=== PATIENT | male | born 1995 | race Hispanic/Latino ===

== ENCOUNTER 2017-12-15 04:42 | Emergency (ER) | payer OTHER ==
[2017-12-15] MEDS ORDERED: IBUPROFEN 400 MG TABLET ONE (05:17)
== END 2017-12-15 06:35 | disposition home or self-care (01) ==
LOC: EDH 04:42
DX: S69.82XA Other specified injuries of left wrist, hand and finger(s), initial encounter (principal); M25.532 Pain in left wrist; W22.8XXA Striking against or struck by other objects, initial encounter; Y93.89 Activity, other specified; Y92.89 Other specified places as the place of occurrence of the external cause; Y99.8 Other external cause status
CPT/HCPCS: 29125; 73110

== ENCOUNTER 2018-05-28 12:31 | Inpatient (IN) | payer OTHER ==
[2018-05-28] VITALS (8 sets, daily range): BP systolic 123–135; BP diastolic 55–80
[~2018-05-28] VITALS: Ht 180.3 cm; Wt 65.6 kg
[2018-05-28 13:09] LABS: BASOPHILS % (AUTO) 3.4 % (0.0-5.0); EOSINOPHILS % (AUTO) 0.1 % (0.0-8.0); HEMATOCRIT 42.6 % (42-54); MEAN CORPUSCULAR HEMOGLOBIN 28.5 pg (27.0-33.0); MEAN CORPUSCULAR HGB CONC 34.3 g/dL (32.0-36.0); MONOCYTES % (AUTO) 10.1 % (3.0-13.0); NEUTROPHILS % (AUTO) 74.4 % (40.0-77.0); PLATELET COUNT (AUTO) 122 K/uL (130-400); RED BLOOD CELL COUNT(AUTO) 5.13 MIL/uL (4.50-6.20); WHITE BLOOD COUNT (AUTO) 6.2 K/uL (4.8-10.8)
[2018-05-28 13:15] LABS: HEMOGLOBIN A1C 11.6 % (4.0-6.0)
[2018-05-28 13:21] LABS: ABG BASE EXCESS -15.8 mmol/L (-2.0-3.0); ABG HCO3 8.5 mmol/L (21.0-28.0); ABG OXYGEN SATURATION 97.5 % (95.0-99.0); ABG PCO2 19 mmHg (35-48)
[2018-05-28 13:36] LABS: ALBUMIN 3.4 g/dL (3.5-5.0); BILIRUBIN,TOTAL 0.9 mg/dL (0.2-1.0); TOTAL PROTEIN, SERUM 7.4 g/dL (6.0-8.3)
[2018-05-28] MEDS ORDERED: INSULIN HUMULIN R 100 UNIT/ML 3ML ONE ×2 (13:45→13:53)
[2018-05-28] MEDS ORDERED: SODIUM CHLORIDE 0.9% 100 ML IV ONE (13:51)
[2018-05-28] MEDS ORDERED: ONDANSETRON HCL 4 MG/2 ML VIAL ONE (13:58)
[2018-05-28] MEDS: SODIUM CHLORIDE 0.9% 1000ML 1,000 ML IV SCH ×2 (14:32→19:54)
[2018-05-28] MEDS ORDERED: SODIUM CHLORIDE 0.9% 1000ML 1,000 ML IV SCH (14:32)
[2018-05-28 14:33] LABS: APPEARANCE,URINE Clear (CLEAR); BILIRUBIN,URINE Negative (NEGATIVE); COLOR,URINE Yellow (YELLOW); GLUCOSE, URINE (UA) >=1000 mg/dL (NEGATIVE); KETONES,URINE >=160 mg/dL (NEGATIVE); LEUKOCYTE ESTERASE ,URINE Negative (NEGATIVE); NITRATE,URINE Negative (NEGATIVE); OCCULT BLOOD,URINE Negative (NEGATIVE); PROTEIN,URINE Trace (NEGATIVE); UROBILINOGEN,URINE 0.2 mg/dL (0.2-1.0)
[2018-05-28 14:43] LABS: AMPHET/METH SCREEN,URINE NEGATIVE (NEGATIVE); BARBITURATE SCREEN, URINE NEGATIVE (NEGATIVE); BENZODIAZEPINES SCREEN,URINE NEGATIVE (NEGATIVE); CANNABINOID SCREEN,URINE NEGATIVE (NEGATIVE); COCAINE SCREEN,URINE NEGATIVE (NEGATIVE); OPIATE SCREEN,URINE NEGATIVE (NEGATIVE); PHENCYCLIDINE SCREEN,URINE NEGATIVE (NEGATIVE)
[2018-05-28] MEDS ORDERED: MORPHINE SULFATE 2 MG/ML 1ML SYG IV PRN (14:45)
[2018-05-28] MEDS ORDERED: HYDRALAZINE HCL 20 MG/ML VIAL IV PRN (14:45)
[2018-05-28] MEDS ORDERED: ACETAMINOPHEN 325 MG TAB PO PRN (14:45)
[2018-05-28] MEDS ORDERED: INSULIN HUMULIN R 100 UNIT/ML 3ML IV SCH (14:45)
[2018-05-28] MEDS ORDERED: ONDANSETRON HCL 4 MG/2 ML VIAL IV PRN (14:45)
[2018-05-28] MEDS ORDERED: SODIUM CHLORIDE 0.9% 1000ML 1,000 ML IV ONE (15:04)
[2018-05-28 15:05] LABS: RBC,URINE 0-1 /HPF (0-1)
[2018-05-28 15:06] LABS: BACTERIA,URINE Rare /HPF (None Seen); SQUAMOUS EPITHELIAL CELL,UR Rare /HPF (0-2)
[2018-05-28 15:07] LABS: MUCUS,URINE Rare LPF (None Seen)
[2018-05-28] MEDS ORDERED: INSULIN REGULAR, HUMAN 3ML 100 UNIT in SODIUM CHLORIDE 0.9% 99 ML IV PRN ×2 (15:15)
[2018-05-28 16:01] LABS: CREATININE 0.7 mg/dL (0.5-1.5); POTASSIUM 3.4 mmol/L (3.5-5.1)
[2018-05-28] MEDS: DEXTROSE 5 %-0.45 % NACL 1,000 ML IV PRN (17:44)
[2018-05-28] MEDS: POTASSIUM CHLORIDE 10MEQ/100ML 100 ML IV PRN ×2 (19:10→19:54)
[2018-05-28] MEDS: FAMOTIDINE/PF 20 MG/2 ML VIAL IV SCH (19:54)
[2018-05-28 22:27] LABS: CREATININE 0.6 mg/dL (0.5-1.5); HEMOGLOBIN A1C 12.8 % (4.0-6.0)
[2018-05-28 22:30] LABS: POTASSIUM 2.9 mmol/L (3.5-5.1)
[2018-05-28] MEDS ORDERED: POTASSIUM CHLORIDE 20MEQ/100ML 300 ML IV ONE (23:02)
[2018-05-29] MEDS: SODIUM CHLORIDE 0.9% 1000ML 1,000 ML IV SCH ×5 (00:32→20:48)
[2018-05-29] MEDS: POTASSIUM CHLORIDE 20MEQ/100ML 100 ML IV PRN ×4 (00:47→08:04)
[2018-05-29 00:58] VITALS: BP 123/63
[2018-05-29 05:01] LABS: CREATININE 0.6 mg/dL (0.5-1.5); MAGNESIUM 1.2 mg/dL (1.80-2.40); POTASSIUM 3.2 mmol/L (3.5-5.1)
[2018-05-29] MEDS ORDERED: MAGNESIUM 2GM PREMIX 50ML 50 ML IV ONE (05:14)
[2018-05-29] MEDS ORDERED: MAGNESIUM 2GM PREMIX 50ML 50 ML IV PRN (05:15)
[2018-05-29] MEDS: FAMOTIDINE/PF 20 MG/2 ML VIAL IV SCH ×2 (08:35→20:48)
[2018-05-29] MEDS: DEXTROSE 5 %-0.45 % NACL 1,000 ML IV PRN (08:35)
[2018-05-29] MEDS ORDERED: INSULIN GLARGINE 100 UNITS/ML 10 ML VIAL SQ SCH ×2 (08:45→21:00)
[2018-05-29 09:24] LABS: CREATININE 0.6 mg/dL (0.5-1.5); POTASSIUM 3.5 mmol/L (3.5-5.1)
[2018-05-29] MEDS ORDERED: DEXTROSE 50%-WATER 50 ML DISP.SYRIN IV PRN (11:15)
[2018-05-29] MEDS ORDERED: GLUCAGON 1MG KIT 1 MG ML IM PRN (11:15)
[2018-05-29] MEDS ORDERED: POTASSIUM CHLORIDE 20 MEQ ERTAB PO ONE (11:25)
[2018-05-29] MEDS ORDERED: POTASSIUM CHLORIDE 20 MEQ ERTAB PO PRN (11:30)
[2018-05-29] MEDS ORDERED: POTASSIUM CHLORIDE 10% ELIXIR 20 MEQ/15 ML UDCUP PO PRN (11:30)
[2018-05-29] MEDS: INSULIN LISPRO 100 UNIT/ML 3ML SQ SCH ×5 (11:31→21:04)
[2018-05-29 16:31] VITALS: BP 127/52
[2018-05-29 16:42] VITALS: BP 114/61
[2018-05-29 19:00] VITALS: BP 117/62
[2018-05-30] VITALS: BP 113/55
[2018-05-30 03:59] VITALS: BP 138/61
[2018-05-30 05:39] LABS: HEMATOCRIT 35.6 % (42-54); MEAN CORPUSCULAR HEMOGLOBIN 28.7 pg (27.0-33.0); MEAN CORPUSCULAR HGB CONC 35.8 g/dL (32.0-36.0); MEAN CORPUSCULAR VOLUME 80.3 fL (79-99); NUCLEATED RED BLOOD CELLS 0.1 % (0.0-0.19); PLATELET COUNT (AUTO) 116 K/uL (130-400); RED BLOOD CELL COUNT(AUTO) 4.43 MIL/uL (4.50-6.20); WHITE BLOOD COUNT (AUTO) 2.8 K/uL (4.8-10.8)
[2018-05-30 06:02] LABS: CREATININE 0.4 mg/dL (0.5-1.5); MAGNESIUM 1.6 mg/dL (1.80-2.40); POTASSIUM 3.4 mmol/L (3.5-5.1)
[2018-05-30] MEDS: SODIUM CHLORIDE 0.9% 1000ML 1,000 ML IV SCH (06:42)
[2018-05-30] MEDS: INSULIN LISPRO 100 UNIT/ML 3ML SQ SCH ×4 (06:47→12:18)
[2018-05-30 07:16] LABS: BASOPHILS % (MANUAL) 1 % (0-2); EOSINOPHILS % (MANUAL) 3 % (1-6); LYMPHOCYTES % (MANUAL) 49 % (22-44); MAN.DIFF COMMENT-IMPRESSION MANUAL DIFFERENTIAL; MONOCYTES % (MANUAL) 5 % (2-9); REACTIVE LYMPHOCYTES 5 % (0-0); SEGMENTED NEUTROPHILS % 37 % (40-70)
[2018-05-30 07:30] VITALS: BP 113/47
[2018-05-30] MEDS ORDERED: INSLAN SQ (09:48)
[2018-05-30] MEDS ORDERED: INSU100V SQ (09:48)
[2018-05-30] MEDS ORDERED: POTASSIUM CHLORIDE 20 MEQ ERTAB PO SCH (10:00)
[2018-05-30] MEDS: FAMOTIDINE/PF 20 MG/2 ML VIAL IV SCH (10:07)
[2018-05-30 11:00] VITALS: BP 113/47
== END 2018-05-30 14:10 | disposition home or self-care (01) | DRG 638 ==
LOC: EDH 12:31 → EDHIP 12:32 → 2BH 17:42 → 3CH 05-29 15:30
PROVIDERS: ADMIT Hospitalist; ATTEND Hospitalist
DX: E11.10 Type 2 diabetes mellitus with ketoacidosis without coma (principal); N17.9 Acute kidney failure, unspecified; E86.0 Dehydration; I10 Essential (primary) hypertension; E86.1 Hypovolemia; F32.9 Major depressive disorder, single episode, unspecified; J45.909 Unspecified asthma, uncomplicated; G47.00 Insomnia, unspecified; K59.00 Constipation, unspecified; Z72.0 Tobacco use; Z91.19 Patient's noncompliance with other medical treatment and regimen; Z82.49 Family history of ischemic heart disease and other diseases of the circulatory system; Z83.3 Family history of diabetes mellitus
CPT/HCPCS: 36415; 36600; 80048; 80053; 80061; 80305; 81001; 82803; 82948; 83036; 83690; 83735; 85025; 85027; 86341; 87804; J1815; J2405; J3475; J3480; J3490; J7030; J7042

== ENCOUNTER 2018-09-28 16:20 | Emergency (ER) | payer OTHER ==
[~2018-09-28 16:20] MED LIST: INSLAN SQ; INSU100V SQ
[2018-09-28 17:15] LABS: BASOPHILS % (AUTO) 0.6 % (0.0-5.0); EOSINOPHILS % (AUTO) 1.3 % (0.0-8.0); HEMATOCRIT 37.3 % (42-54); LYMPHOCYTES % (AUTO) 21.9 % (21.0-51.0); MEAN CORPUSCULAR HGB CONC 34.7 g/dL (32.0-36.0); MEAN CORPUSCULAR VOLUME 77.8 fL (79-99); MONOCYTES % (AUTO) 7.6 % (3.0-13.0); NEUTROPHILS % (AUTO) 68.6 % (40.0-77.0); PLATELET COUNT (AUTO) 265 K/uL (130-400); RED BLOOD CELL COUNT(AUTO) 4.79 MIL/uL (4.50-6.20); RED CELL DISTRIBUTION WIDTH 13.3 % (11.0-15.5); WHITE BLOOD COUNT (AUTO) 6.1 K/uL (4.8-10.8)
[2018-09-28 17:23] LABS: APPEARANCE,URINE Clear (CLEAR); BILIRUBIN,URINE Negative (NEGATIVE); COLOR,URINE Yellow (YELLOW); GLUCOSE, URINE (UA) >=1000 mg/dL (NEGATIVE); KETONES,URINE Negative (NEGATIVE); LEUKOCYTE ESTERASE ,URINE Negative (NEGATIVE); NITRATE,URINE Negative (NEGATIVE); OCCULT BLOOD,URINE Negative (NEGATIVE); PROTEIN,URINE Negative (NEGATIVE)
[2018-09-28 17:26] LABS: ALBUMIN 3.1 g/dL (3.5-5.0); BILIRUBIN,TOTAL 0.3 mg/dL (0.2-1.0); CREATININE 0.7 mg/dL (0.5-1.5); TOTAL PROTEIN, SERUM 6.6 g/dL (6.0-8.3)
[2018-09-28] MEDS ORDERED: INSULIN HUMULIN R 100 UNIT/ML 3ML ONE (17:44)
[2018-09-28 17:47] LABS: BACTERIA,URINE Rare /HPF (None Seen); RBC,URINE None Seen /HPF (0-1); SQUAMOUS EPITHELIAL CELL,UR 0-2 /HPF (0-2); WBC,URINE 0-1 /HPF (0-1)
== END 2018-09-28 18:59 | disposition home or self-care (01) ==
LOC: EDH 16:20
DX: L02.11 Cutaneous abscess of neck (principal); E11.65 Type 2 diabetes mellitus with hyperglycemia; J45.909 Unspecified asthma, uncomplicated
CPT/HCPCS: 36415; 80053; 81001; 82948 ×2; 85025; 96372; 99283; J1815

== ENCOUNTER 2020-06-11 13:58 | Emergency (ER) | payer OTHER | END 2020-06-11 14:43 | disposition home or self-care (01) | LOC: EDH 13:58 | DX: M70.21 Olecranon bursitis, right elbow (principal); J45.909 Unspecified asthma, uncomplicated; E11.9 Type 2 diabetes mellitus without complications; Z72.0 Tobacco use; Y93.89 Activity, other specified | CPT/HCPCS: 73080 ==